=== PATIENT | female | born 1935 | race Caucasian/White ===

== ENCOUNTER 2024-04-09 11:18 | Day surgery (SDC) | payer MEDICARE ==
[~2024-04-09] VITALS: Ht 142.2 cm; Wt 64.9 kg
[2024-04-09] MEDS ORDERED: MIDAZOLAM 5 MG/5 ML VIAL ONE (12:20)
[2024-04-09] MEDS ORDERED: fentaNYL citrate 0.05 MG/ML VIAL ONE (12:20)
[2024-04-09] MEDS ORDERED: LIDOCAINE 2% 100 MG/5 ML UJET TP ONE (12:21)
[2024-04-09] MEDS: fentaNYL citrate 0.05 MG/ML VIAL IVP ONE (12:29)
[2024-04-09] MEDS: MIDAZOLAM 2 MG/2 ML VIAL IVP ONE (12:31)
== END 2024-04-09 14:30 | disposition home or self-care (01) ==
LOC: MMU 11:18 → MDS 11:18
PROVIDERS: ATTEND Internal Medicine Gastroenterology
DX: K92.1 Melena (principal); K64.1 Second degree hemorrhoids; D64.9 Anemia, unspecified; K59.00 Constipation, unspecified; I10 Essential (primary) hypertension; E11.9 Type 2 diabetes mellitus without complications; M81.0 Age-related osteoporosis without current pathological fracture; Z79.899 Other long term (current) drug therapy; Z98.890 Other specified postprocedural states
CPT/HCPCS: 43250; 45330; 82948; 88305; J2250; J3010